=== PATIENT | male | born 1980 | race Caucasian/White ===

== ENCOUNTER 2016-11-17 01:59 | Emergency (ER) | payer MEDICAID, OTHER ==
[~2016-11-17] VITALS: Ht 170.2 cm; Wt 78.0 kg
[~2016-11-17 01:59] MED LIST: CEPH-443 PO; HYDR-3498 PO; HYDR-906 PO; PHEN-537 PO
[2016-11-17 02:05] VITALS: Ht 170.2 cm; Wt 78.0 kg
[2016-11-17] MEDS ORDERED: IBUPROFEN 600 MG TAB PO ONE (04:30)
--- NOTE | 2016-11-17 05:02 | RADRPT ---
PROCEDURE: Right wrist. CLINICAL INDICATION: Pain. TECHNIQUE: 4 views including PA, lateral and oblique views of the right wrist were performed. COMPARISON: None. FINDINGS: There are old fractures of the ulnar styloid. There is no acute fracture or dislocation. The joint spaces are within normal limits. Bone mineralization is within normal limits. There is no radiopa que foreign body or abnormal calcification. IMPRESSION: No evidence of acute fracture. Old fractures of the ulnar styloid. .Huy Simmons MD, MD Date Time Electronically viewed and signed by .Huy Simmons MD, on 11/17/2016 05:02 .T/
[2016-11-17] MEDS ORDERED: IBUP-1542 PO (05:25)
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
== END 2016-11-17 06:31 | disposition home or self-care (01) ==
LOC: FTE 01:59
DX: S52.614A Nondisplaced fracture of right ulna styloid process, initial encounter for closed fracture (principal); V18.4XXA Pedal cycle driver injured in noncollision transport accident in traffic accident, initial encounter
CPT/HCPCS: 29125; 73110; Z7502; Z7610

== ENCOUNTER 2016-12-16 21:12 | Emergency (ER) | payer MEDICAID ==
[~2016-12-16] VITALS: Ht 167.6 cm; Wt 75.0 kg
[~2016-12-16 21:12] MED LIST changes: +IBUP-1542 PO
[2016-12-16 21:24] VITALS: Ht 167.6 cm; Wt 75.0 kg
--- NOTE | 2016-12-16 22:03 | ERD ---
ER Documentation Chief Complaint Date/Time DATE: 12/16/16 TIME: 22:03 Chief Complaint cough x 2 weeks HPI 36-year-old male otherwise healthy presents with a dry cough for the past 2 weeks, with intermittent fever. Patient states that he had a fever about 2 days ago that resolved. Cough has been dry, reports mild wheezing. Denies shortness of breath at this time. Denies recent travel. ROS All systems reviewed and are negative except as per history of present illness. Medications Home Meds Active Scripts Guaifenesin/Codeine Phosphate (CHERATUSSIN AC SYRUP) 118 Ml Liquid, 5 ML PO Q4H Y for COUGH, #118 ML Prov:TATYANA MEYER PA-C 12/16/16 Albuterol Sulfate* (Proair HFA*) 8.5 Gm Hfa.aer.ad, 2 PUFF INH Q4, #1 INHALER Prov:TATYANA MEYER PA-C 12/16/16 Azithromycin* (Zithromax*) 250 Mg Tablet, 250 MG PO .ZPACK DIRECTED, #6 TAB TAKE 500 MG (2 TABS) THE FIRST DAY THEN 250 MG (1 TAB) DAYS 2-5 Prov:TATYANA MEYER PA-C 12/16/16 Ibuprofen* (Motrin*) 600 Mg Tab, 600 MG PO Q6, #30 TAB Prov:JOHNSON NGUYEN PA-C 11/17/16 Hydrocodone/Acetaminophen ([place] 5-325 Tablet) 1 Each Tablet, 1 TAB PO Q6H Y for PAIN, #15 TAB Prov:PASQUALE CRISOSTOMO 05/05/16 Phenazopyridine Hcl* (Pyridium*) 100 Mg Tab, 100 MG PO TID Y for URINARY PAIN, # 9 TAB Prov:PASQUALE CRISOSTOMO 05/05/16 Hydrocodone Bit-Acetaminophen* ([place]*) 5-325 Mg Tab, 1 TAB PO Q6 Y for PAIN, # 7 TAB Prov:SHADE ROME PA-C 08/08/15 Hydrocodone Bit-Acetaminophen* ([place]*) 5-325 Mg Tab, 1 TAB PO Q6 Y for PAIN, # 7 TAB Prov:YARELIS HARDWICK PA-C 08/06/15 Cephalexin* (Keflex*) 500 Mg Capsule, 500 MG PO QID for 7 Days, CAP Prov:YARELIS HARDWICK PA-C 08/06/15 Allergies Allergies: Coded Allergies: No Known Allergy (Unverified , 08/05/15) PMhx/Soc History of Surgery: No Anesthesia Reaction: No Hx Neurological Disorder: No Hx Respiratory Disorders: No Hx Cardiac Disorders: No Hx Psychiatric Problems: No Hx Miscellaneous Medical Probl: No Hx Alcohol Use: Yes (social) Hx Substance Use: No Hx Tobacco Use: No Physical Exam Vitals Vital Signs Date Time Temp Pulse Resp B/P Pulse Ox O2 Delivery O2 Flow Rate FiO2 12/16/16 21:24 98.7 106 20 125/61 98 Physical Exam General: Well-developed, well-nourished. The patient appears in no acute distress. HEENT: Head is normocephalic, atraumatic. No scleral icterus. Neck: Supple. Nontender. Lungs: Clear to auscultation. Normal air movement. Persistent cough, no rales or rhonchi, nonlabored Heart: Regular rate and rhythm. S1 and S2 are normal. No murmurs, gallops, or rubs. Abdomen: Nondistended. Extremities: No clubbing or cyanosis. Moving extremities x 4. No weakness. Neurologic: Alert and oriented 3. No focal deficits. Normal speech and gait. Skin: Normal turgor. No rash or lesions. Results 24 hrs Patient: FERNANDO SWEET : 1980 Age: 36 Sex: M MR #: [id number] DOS: 12/16/16 2201 Ordering MD: TATYANA MEYER PA-C Location: [facility] Room/Bed: PROCEDURE: XR Chest. CLINICAL INDICATION: Cough TECHNIQUE: Single AP portable chest. COMPARISON: 12/16/2016 Chest x-ray FINDINGS: The cardiomediastinal silhouette is within normal limits of size. The lungs are clear without pleural effusion or focal consolidation. No pneumothorax. The osseous structures and soft tissues are unremarkable. IMPRESSION: 1. No evidence for active cardiopulmonary disease. RPTAT:AAJJ Physician Oscar Date Time Electronically viewed and signed by Physician Oscar on 12/16/2016 22:59 MO/ Procedures/MDM The patient is a 36-year-old male who comes in with an acute bronchitis. Chest x-ray is negative. The patient has a differential diagnosis of a viral upper respiratory infection, bacterial upper respiratory infection, bronchitis, pneumonia, pharyngitis, laryngitis, epiglottitis, croup, pneumonia. Patient has a normal pulmonary examination, clear breath sounds, normal pulse oximetry, with no corrective measures needed at this time. Fluids, rest, antipyretics were encouraged. Departure Diagnosis: Primary Impression: Cough Condition: Good TATYANA MEYER PA-C Dec 16, 2016 22:03
--- NOTE | 2016-12-16 22:59 | RADRPT ---
PROCEDURE: XR Chest. CLINICAL INDICATION: Cough TECHNIQUE: Single AP portable chest. COMPARISON: 12/16/2016 Chest x-ray FINDINGS: The cardiomediastinal silhouette is within normal limits of size. The lungs are clear without pleur al effusion or focal consolidation. No pneumothorax. The osseous structures and soft tissues are unr emarkable. IMPRESSION: 1. No evidence for active cardiopulmonary disease. RPTAT:AAJJ Haris Espino Physician Date Time Electronically viewed and signed by Haris Espino Physician on 12/16/2016 22:59 MO/
[2016-12-16] MEDS ORDERED: AZIT250T94 PO (23:02)
[2016-12-16] MEDS ORDERED: GUAI118L22 PO (23:02)
[2016-12-16] MEDS ORDERED: ALBU8.5H3 INH (23:02)
== END 2016-12-16 23:18 | disposition home or self-care (01) ==
LOC: FTE 21:12
DX: R05 Cough (principal)
CPT/HCPCS: 71010; Z7502

== ENCOUNTER 2017-12-17 22:02 | Emergency (ER) | END 2017-12-18 01:30 | disposition home or self-care (01) ==